=== PATIENT | male | born 1990 | race African-American/Black ===

== ENCOUNTER 2020-08-27 08:39 | Emergency (ER) | payer SELFPAY ==
--- NOTE | 2020-08-27 10:38 | ER Document Report ---
ED Medical Screen (RME) - General Chief Complaint: Dizziness Stated Complaint: DIZZINESS Time Seen by Provider: 08/27/20 10:32 Mode of Arrival: Ambulatory Information source: Patient Notes: Otherwise healthy 30-year-old male presented emergency department with intermittent dizziness and nausea. Patient reports symptoms ongoing for the last few days. He states that he drinks water and takes an iron tablet which makes his symptoms improved. He denies any chest pain or shortness of breath. Does report a remote history of anemia. Patient is alert, oriented, answering all questions appropriately, skin warm and dry. No acute distress noted. I have greeted and performed a rapid initial assessment of this patient. A comprehensive ED assessment and evaluation of the patient, analysis of test results and completion of the medical decision making process will be conducted by additional ED providers. I have specifically instructed the patient or family members with the patient to immediately return to any nursing staff should anything change in the patient's condition or with their chief complaint. TRAVEL OUTSIDE OF THE [place] IN LAST 30 DAYS: No - Related Data Allergies/Adverse Reactions: No Known Allergies Allergy (Verified 08/27/20 09:13) Past Medical History - Social History Frequency of alcohol use: None Drug Abuse: None - Immunizations Immunizations up to date: Yes Hx Diphtheria, Pertussis, Tetanus Vaccination: Yes - tetanus last year Physical Exam - Vital signs Vitals: Temp Pulse Resp BP Pulse Ox 98.1 F 108 H 16 139/84 H 98 08/27/20 08:42 08/27/20 08:42 08/27/20 08:42 08/27/20 08:42 08/27/20 08:42 Course - Vital Signs Vital signs: Temp Pulse Resp BP Pulse Ox 98.1 F 108 H 16 139/84 H 98 08/27/20 08:42 08/27/20 08:42 08/27/20 08:42 08/27/20 08:42 08/27/20 08:42
[2020-08-27 11:20] LABS: ABSOLUTE LYMPHOCYTES (AUTO) 1.2 10^3/uL (0.5-4.7); ABSOLUTE MONOCYTES (AUTO) 0.2 10^3/uL (0.1-1.4); ABSOLUTE NEUT (AUTO) 2.1 10^3/uL (1.7-8.2); BASOPHILS % (AUTO) 0.6 % (0-2); EOSINOPHILS % (AUTO) 1.1 % (0-6); HEMATOCRIT 45.5 % (37.9-51.0); HEMOGLOBIN 15.6 g/dL (13.5-17.0); LYMPHOCYTES % (AUTO) 33.8 % (13-45); MEAN CORPUSCULAR HEMOGLOBIN 29.2 pg (27.0-33.4); MEAN CORPUSCULAR HGB CONC 34.4 g/dL (32.0-36.0); MEAN CORPUSCULAR VOLUME 85 fl (80-97); MONOCYTES % (AUTO) 6.7 % (3-13); PLATELET COUNT 252 10^3/uL (150-450); RED BLOOD COUNT 5.35 10^6/uL (4.35-5.55); RED CELL DISTRIBUTION WIDTH 13.7 % (11.5-14.0); SEGMENTED NEUTROPHILS % (AUTO) 57.8 % (42-78); TOTAL CELLS COUNTED % (AUTO) 100 %; WHITE BLOOD COUNT 3.6 10^3/uL (4.0-10.5)
[2020-08-27 11:22] LABS: APPEARANCE,URINE CLEAR; BILIRUBIN,URINE NEGATIVE (NEGATIVE); COLOR,URINE STRAW; GLUCOSE, URINE NEGATIVE (NEGATIVE); KETONES,URINE NEGATIVE (NEGATIVE); LEUKOCYTE ESTERASE,URINE NEGATIVE (NEGATIVE); NITRITE,URINE NEGATIVE (NEGATIVE); PROTEIN,URINE NEGATIVE (NEGATIVE); UROBILINOGEN,URINE NEGATIVE mg/dL (<2.0)
[2020-08-27 11:50] LABS: ALBUMIN 4.7 g/dL (3.5-5.0); ALKALINE PHOSPHATASE 76 U/L (38-126); ANION GAP 9 (5-19); ASPARTATE AMINO TRANSFERASE 26 U/L (17-59); BILIRUBIN,DIRECT 0.2 mg/dL (0.0-0.4); BILIRUBIN,TOTAL 0.7 mg/dL (0.2-1.3); BLOOD UREA NITROGEN 14 mg/dL (7-20); CALCIUM 10.1 mg/dL (8.4-10.2); CARBON DIOXIDE 31 mmol/L (22-30); CHLORIDE 100 mmol/L (98-107); GLUCOSE 99 mg/dL (75-110); POTASSIUM 4.1 mmol/L (3.6-5.0); TOTAL PROTEIN 8.8 g/dL (6.3-8.2)
--- NOTE | 2020-08-27 13:41 | ER Document Report ---
ED General - General Mode of Arrival: Ambulatory TRAVEL OUTSIDE OF THE [place] IN LAST 30 DAYS: No <MINDA APONTE - Last Filed: 08/27/20 15:59> <HAIDERZAHRAA Martha BROWN - Last Filed: 08/27/20 19:52> - General Chief Complaint: Dizziness Stated Complaint: DIZZINESS Time Seen by Provider: 08/27/20 10:32 - HPI Notes: Chief complaint: Dizziness History of present illness: Previously healthy 30-year-old male avila's that he was diagnosed with COVID-19 infection approximately 2 months ago. He reports that since that time he has had ongoing intermittent dizziness. He notes some mild exertional dyspnea. Says his appetite has been poor. No vomiting. No diarrhea. No fever chills. No cough or sputum production. No chest pain. Non-smoker. No regular medications. No known allergies. No use of drugs or al cohol. No prior surgery or inpatient hospitalizations. (MINDA APONTE) - Related Data Allergies/Adverse Reactions: No Known Allergies Allergy (Verified 08/27/20 09:13) Past Medical History - General Information source: Patient - Social History Smoking Status: Never Smoker Frequency of alcohol use: None Drug Abuse: None Family History: None Surgical Hx: Negative - Immunizations Immunizations up to date: Yes Hx Diphtheria, Pertussis, Tetanus Vaccination: Yes - tetanus last year <MINDA APONTE - Last Filed: 08/27/20 15:59> Review of Systems <MINDA APONTE - Last Filed: 08/27/20 15:59> - Review of Systems Notes: Constitutional: Negative for fever. HENT: Negative for sore throat. Eyes: Negative for visual changes. Cardiovascular: Negative for chest pain. Respiratory: As per HPI. Gastrointestinal: As per HPI. Genitourinary: Negative for dysuria. Musculoskeletal: Negative for back pain. Skin: Negative for rash. Neurological: Negative for headaches, focal weakness or numbness. 10 point ROS negative except as marked above and in HPI. (MINDA APONTE) Physical Exam <MINDA APONTE - Last Filed: 08/27/20 15:59> - Vital signs Vitals: Temp Pulse Resp BP Pulse Ox 98.1 F 108 H 16 139/84 H 98 08/27/20 08:42 08/27/20 08:42 08/27/20 08:42 08/27/20 08:42 08/27/20 08:42 - Notes Notes: GENERAL: Slender male approximately stated age appearing in no acute distress. SKIN: Good turgor no rashes. HEAD: Normocephalic atraumatic. EYES: PERRLA. EOMI. Conjunctivae and sclerae clear. EARS: CANALS AND TMS CLEAR. NOSE: CLEAR. MOUTH: Moist mucosa. Good dentition. No stridor or edema. No drooling. NECK: Supple. No masses or thyromegaly. No adenopathy. Carotids 2+ without bruits. No JVD. BACK: Symmetrical without tenderness. CHEST: Respirations unlabored. Breath sounds clear and symmetrical. HEART: Tachycardic. Regular rhythm. No murmur gallop or rub. ABDOMEN: Soft nontender without masses, organomegaly or rebound. Bowel sounds normally active. No bruits. GENITALIA: Deferred. EXTREMITIES: No edema. No calf tenderness. Cap refill less than 1.5 seconds. Dorsalis pedis and posterior tibial pulses 3+ and symmetrical. NEUROLOGICAL: GCS 15. Alert and oriented x3. Normal gait. Fluent speech. Cranial nerves II through XII intact. Sensorimotor and cerebellar normal. Normal tone. PSYCHIATRIC: Appropriate affect. (MINDA APONTE) Course - Laboratory Results Result Diagrams: 08/27/20 10:57 08/27/20 10:57 Critical Laboratory Results Reviewed: No Critical Results <MINDA APONTE - Last Filed: 08/27/20 15:59> - Laboratory Results Result Diagrams: 08/27/20 10:57 08/27/20 10:57 Critical Laboratory Results Reviewed: Yes Attending or Supervising Physician who Reviewed Labs: ZAHRAA SHEPPARD JR - Radiology Results Critical Radiology Results Reviewed: Yes Attending or Supervising Physician who Reviewed Radiology: ZAHRAA SHEPPARD JR - EKG Interpretation by Me EKG shows normal: Sinus rhythm Rate: Tachycardia Rhythm: NSR - Heart rate with sinus tachycardia at 111 bpm with right axis deviation but no ST elevation and no ST depression and no T wave depression and no T wave elevation. This was read by myself as well as Dr. Aponte and I agree with the EKG machine. <ZAHRAA SHEPPARD JR - Last Filed: 08/27/20 19:52> - Re-evaluation Re-evalutation: 08/27/20 16:00 This young man had had a previously documented Covid infection over 2 months ago and came in today with some weakness dizziness and mild dyspnea on exertion. He is mildly tachycardic at rest. He does not appear to be overtly in congestive failure. His chest x-ray was normal. His EKG aside from his sinus tachycardia with rate about 111 is otherwise normal. His BNP level is normal. His D-dimer is mildly elevated. His CBC and comprehensive metabolic profile are unremarkable. Plan at this time is to get a CTA to rule out pulmonary embolus. If this is negative I would suggest outpatient follow-up with possible consideration of a visit with chief embalmer for an echocardiogram. Further care of this patient is turned over to Dr. Sheppard at 1600 hrs. with final disposition pending. (MINDA APONTE) - Vital Signs Vital signs: Temp Pulse Resp BP Pulse Ox 98.1 F 108 H 16 139/84 H 98 08/27/20 08:42 08/27/20 08:42 08/27/20 08:42 08/27/20 08:42 08/27/20 08:42 - Laboratory Results Laboratory Results Interpreted: 08/27/20 08/27/20 08/27/20 10:57 10:57 14:20 WBC 3.6 L D-Dimer 0.58 H Carbon Dioxide 31 H Total Protein 8.8 H - Radiology Results Radiology Results Interpreted: 08/27/20 19:47 Dr. Garcia radiologist advises patient has a CTe chest without PE but does have a liver mass. Recommends follow-up for this. (ZAHRAA SHEPPARD JR) - EKG Interpretation by Me Additional EKG results interpreted by me: 08/27/20 13:40 Twelve-lead EKG reviewed by me contemporaneously: 1105 hrs. Indication for study: Dizziness Rhythm: Sinus tachycardia Rate: 111 Intervals: Normal intervals QRS axis: +[address]/T wave changes: None Comparison with prior tracing: None Interpretation: Sinus tachycardia (MINDA APONTE) Discharge <MINDA APONTE - Last Filed: 08/27/20 15:59> <ZAHRAA SHEPPARD JR - Last Filed: 08/27/20 19:52> - Discharge Clinical Impression: Late effects of COVID-19 infection, Tachycardia, Liver mass Disposition: HOME, SELF-CARE Additional Instructions: Follow-up with Dr. Pedroza chief embalmer about your tachycardia and return to ER as needed and take medicines as usual. You also have a mass on your CT scan but you do not have any blood clots in your chest. Return to ER as needed. This tachycardia may be related to your Covid. Forms: Return to Work Referrals: LISA PEDROZA MD [ACTIVE STAFF] - Follow up as needed
--- NOTE | 2020-08-27 14:09 | RADIOLOGY REPORT (SQ) ---
EXAM DESCRIPTION: CHEST SINGLE VIEW IMAGES COMPLETED DATE/TIME: 08/27/2020 1:57 pm REASON FOR STUDY: dyspnea on exertion COMPARISON: None. EXAM PARAMETERS: NUMBER OF VIEWS: One view. TECHNIQUE: Single frontal radiographic view of the chest acquired. RADIATION DOSE: NA LIMITATIONS: None. FINDINGS: LUNGS AND PLEURA: No opacities, masses or pneumothorax. No pleural effusion. MEDIASTINUM AND HILAR STRUCTURES: No masses. Contour normal. HEART AND VASCULAR STRUCTURES: Heart normal in size. Normal vasculature. BONES: No acute findings. HARDWARE: None in the chest. OTHER: No other significant finding. IMPRESSION: NO ACUTE RADIOGRAPHIC FINDING IN THE CHEST. TECHNICAL DOCUMENTATION: JOB ID: [id number] 2010 [employer]- All Rights Reserved Reading location - IP/workstation name: [email or web address]
[2020-08-27] MEDS ORDERED: NORMAL SALINE 1000 ML 1,000 ML IV ONE (15:17)
--- NOTE | 2020-08-27 17:32 | RADIOLOGY REPORT (SQ) ---
EXAM DESCRIPTION: CTA CHEST IMAGES COMPLETED DATE/TIME: 08/27/2020 5:21 pm REASON FOR STUDY: tachycardia, dyspnea, mildly elevated d-dimer COMPARISON: None. TECHNIQUE: CT scan of the chest performed using helical scanning technique with dynamic intravenous contrast injection. Images reviewed with lung, soft tissue and bone windows. Reconstructed coronal and sagittal MPR images reviewed. Additional 3 dimensional post-processing performed to develop Maximal Intensity Projection images (ME P). All images stored on PACS. All CT scanners at this facility use dose modulation, iterative reconstruction, and/or weight based d osing when appropriate to reduce radiation dose to as low as reasonably achievable (ALARA). [facility]: Dose Right [facility]: CareDose [facility]: Dose Right [facility]: Teradose 4D [facility]: Whole Optics CONTRAST TYPE AND DOSE: contrast/concentration: Isovue 350.00 mmol/ml; Total Contrast Delivered: 74. 0 ml; Total Saline Delivered: 46.0 ml RENAL FUNCTION: None required. The patient is less than 50 years old. RADIATION DOSE: CT Rad equipment meets quality standard of care and radiation dose reduction techniq ues were employed. CTDIvol: 8.7 - 9.4 mGy. DLP: 358 mGy-cm. . LIMITATIONS: None. FINDINGS: LUNGS AND PLEURA: No masses, infiltrates, or pneumothorax. No pleural effusions or pleura l calcifications. AORTA AND GREAT VESSELS: No aneurysm or dissection. HEART: No pericardial effusion. No significant coronary artery calcifications. PULMONARY ARTERIES: No emboli visualized in the main pulmonary arteries or the segmental branches. HILAR AND MEDIASTINAL STRUCTURES: No identified masses or abnormal nodes. HARDWARE: None in the chest. UPPER ABDOMEN: Heterogeneous presumably enhancing mass measures up to almost 8 cm in the right hepati c lobe. This will need elective clinical and imaging follow-up with MRI when the patient is no longe r acutely ill. THYROID AND OTHER SOFT TISSUES: No masses. No adenopathy. BONES: No acute or significant finding. 3D MIPS: Confirm above findings. OTHER: No other significant finding. IMPRESSION: 1. Normal CTA of the chest, no pulmonary embolus or aortic disease. Clear lungs. 2. Liver mass. Consider nonemergent outpatient liver MRI followup to better characterize when the pa tient is no longer acutely ill. COMMENT: Quality ID # [id number]: Final reports with documentation of one or more dose reduction techniques (e.g., Automated exposure control, adjustment of the mA and/or kV according to patient size, use of iterative reconstruction technique) TECHNICAL DOCUMENTATION: JOB ID: [id number] 2010 [employer]- All Rights Reserved Reading location - IP/workstation name: [email or web address]
--- NOTE | 2020-08-27 18:51 | EKG REPORT ---
SEVERITY:- BORDERLINE ECG - SINUS TACHYCARDIA RIGHT AXIS DEVIATION BORDERLINE T ABNORMALITIES, INFERIOR LEADS : Confirmed by: Lewis Bauman MD 27-Aug-2020 18:50:26
[2020-08-27 20:24] VITALS: BP 128/89
== END 2020-08-27 20:27 | disposition home or self-care (01) ==
LOC: ER 08:39
DX: R00.0 Tachycardia, unspecified (principal); R63.0 Anorexia; R06.00 Dyspnea, unspecified; R53.1 Weakness; R42 Dizziness and giddiness; B94.8 Sequelae of other specified infectious and parasitic diseases; R16.0 Hepatomegaly, not elsewhere classified; R79.89 Other specified abnormal findings of blood chemistry
CPT/HCPCS: 93005; 99285; 96360; 36415; 85025; 80053; 81001; 85379; 83880; 71045; 71275; 93010; J7030